=== PATIENT | male | born 1960 | race Caucasian/White ===

== ENCOUNTER → 2017-03-30 | Emergency (ER) | payer OTHER ==
[~2017-03-30] VITALS: Ht 182.9 cm; Wt 121.6 kg
[~2017-03-30] MED LIST: HYDROcodone-ACET 10/325MG TAB PO ONE
[2017-03-30 13:29] LABS: Basophils # (auto) 0 uL; Basophils % (auto) 0.4 % (0.0-2.0); Eosinophils # (auto) 0 uL; Hematocrit 47.8 % (41.0-53.0); Hemoglobin 16.1 g/dL (13.5-17.5); Lymphocytes # (auto) 0.3 uL; Mean Corpuscular Hemoglobin 28.9 pg (28.0-32.0); Mean Corpuscular Hgb Conc. 33.7 g/dL (32.0-36.0); Mean Corpuscular Volume 85.7 fL (80.0-100.0); Mean Platelet Volume 8.2 fL (6.9-10.8); Monocytes # (auto) 0.5 uL; Monocytes % (auto) 3.9 % (0.0-12.0); Neutrophils # (auto) 11.9 uL; Neutrophils % (auto) 93.7 % (37.0-80.0); Platelet Count (auto) 209 10^3/uL (140-450); Red Cell Distribution Width 12.9 % (11.8-14.3); White Blood Cell 12.7 10^3/uL (4.4-10.8)
[2017-03-30 14:02] LABS: Albumin 4.1 g/dL (3.4-5.0); Alkaline Phosphatase 103 U/L (45-117); Anion Gap 9 (5-15); Aspartate Aminotransferase 43 U/L (15-37); BUN/Creatinine Ratio 22.7; Bilirubin, Total 0.9 mg/dL (0.2-1.0); Blood Urea Nitrogen 25 mg/dL (7-18); Calcium 8.6 mg/dL (8.5-10.1); Carbon Dioxide 25 mmol/L (21-32); Chloride 103 mmol/L (98-107); GFR African American 89 mL/min; GFR Non-African American 74 mL/min; Glucose 109 mg/dL (74-106); Sodium 137 mmol/L (136-145); Total Protein 7.6 g/dL (6.4-8.2)
[2017-03-30 16:18] LABS: Urine Bilirubin Negative (Negative); Urine Blood Negative /uL (Negative); Urine Color Yellow (Yellow); Urine Glucose Normal (Normal); Urine Ketone Negative (Negative); Urine Mucus FEW (None Seen); Urine Nitrite Negative (Negative); Urine RBC <1 /hpf (0 - 3); Urine Squamous Epithelial Cell FEW /hpf (<5); Urine Urobilinogen Normal (Negative)
[2017-03-30 16:42] VITALS: BP 115/87
== END | disposition home or self-care (01) ==
LOC: ER 12:18
DX: K52.9 Noninfective gastroenteritis and colitis, unspecified (principal); M43.17 Spondylolisthesis, lumbosacral region
CPT/HCPCS: 36415; 70450; 72100; 80053; 81001; 84484; 85025; 93005